=== PATIENT | female | born 1990 | race Asian ===

== ENCOUNTER 2017-06-15 18:25 | Inpatient (IN) | payer OTHER ==
[~2017-06-15] VITALS: Ht 162.6 cm; Wt 66.3 kg
[2017-06-15 19:56] LABS: CALCIUM 8.7 mg/dL (8.5-10.1); CARBON DIOXIDE 25.1 mmol/L (21-32); CHLORIDE SERUM 105 mmol/L (98-107); CREATININE SERUM 0.8 mg/dL (0.6-1.0); GFR1 > 60 mL/min; GLUCOSE SERUM 95 mg/dL (74-106); POTASSIUM SERUM 3.9 mmol/L (3.5-5.1); SODIUM SERUM 139 mmol/L (136-145)
[2017-06-15 19:59] LABS: ALBUMIN 3.7 g/dL (3.4-5.0); ALKALINE PHOSPHATASE 47 U/L (46-116); ALT/SGPT 6 U/L (14-59); AST/SGOT 24 U/L (15-37); BILIRUBIN TOTAL 0.29 mg/dL (0.20-1.00); TOTAL PROTEIN, SERUM 7.5 g/dL (6.4-8.2)
[2017-06-15 20:10] LABS: PLATELET COUNT 294 x10^3mcL (130-400)
[2017-06-15 20:11] LABS: RED CELL DISTRIBUTION WIDTH 16.1 % (11.5-14.5)
[2017-06-15 21:17] LABS: BAND NEUTROPHIL 0 % (0-10); BASOPHIL 0 % (0-2); MONOCYTE 3 % (0-7); SEGMENTED NEUTROPHILS 63 % (37-75)
[2017-06-15 21:18] LABS: rbc morphology (normal/abnorm) ABNORMAL (NORMAL)
[2017-06-15 21:19] LABS: ovalocyte/elliptocyte 1+; tear drop cell (dacryocyte) 1+
[2017-06-15 21:20] LABS: PLATELET MORPHOLOGY PLATELETS NORMAL
[2017-06-15 23:54] LABS: CHOLESTEROL/HDL RATIO 3.4; MAGNESIUM 2.2 mg/dL (1.8-2.4); PHOSPHOROUS 2.9 mg/dL (2.5-4.9)
[2017-06-15 23:55] LABS: FREE T4 0.98 ng/dL (0.76-1.46); FREE THYROXINE INDEX 2.7 ug/dL (1.4-4.5); T4(THYROXINE) 8.7 ug/dL (4.7-13.3)
[2017-06-15 23:57] VITALS: BP 116/80
[2017-06-16 00:16] LABS: T3 TOTAL 1.13 ng/mL
[2017-06-16 05:32] VITALS: BP 118/80
[2017-06-16 06:27] LABS: BASOPHIL % 0.4 % (0-2); PLATELET COUNT 274 x10^3mcL (130-400)
[2017-06-16 06:28] LABS: CALCIUM 8.2 mg/dL (8.5-10.1); CARBON DIOXIDE 24.1 mmol/L (21-32); CHLORIDE SERUM 106 mmol/L (98-107); CREATININE SERUM 0.8 mg/dL (0.6-1.0); GFR1 > 60 mL/min; GLUCOSE SERUM 100 mg/dL (74-106); PHOSPHOROUS 3.2 mg/dL (2.5-4.9); RED CELL DISTRIBUTION WIDTH 16.6 % (11.5-14.5); SODIUM SERUM 140 mmol/L (136-145)
[2017-06-16 06:41] LABS: POTASSIUM SERUM 2.9 mmol/L (3.5-5.1)
[2017-06-16 10:23] LABS: microscopic required? YES; urine erythrocyte 3+ (NEGATIVE)
[2017-06-16 10:37] LABS: AMPHETAMINE QUAL UR NONE DETECTED (NEG <=1000)
[2017-06-16 11:21] VITALS: BP 110/73
[2017-06-16 15:02] VITALS: BP 105/65
[2017-06-16 18:11] VITALS: BP 110/73
[2017-06-16 21:32] VITALS: BP 113/75
[2017-06-17 05:18] VITALS: BP 105/68
[2017-06-17 06:28] LABS: CALCIUM 8.6 mg/dL (8.5-10.1); CARBON DIOXIDE 26.2 mmol/L (21-32); CHLORIDE SERUM 107 mmol/L (98-107); CREATININE SERUM 0.6 mg/dL (0.6-1.0); GFR1 > 60 mL/min; GLUCOSE SERUM 95 mg/dL (74-106); POTASSIUM SERUM 3.8 mmol/L (3.5-5.1); SODIUM SERUM 140 mmol/L (136-145)
[2017-06-17 06:48] LABS: BASOPHIL % 0.3 % (0-2); PLATELET COUNT 285 x10^3mcL (130-400)
[2017-06-17 07:10] LABS: RED CELL DISTRIBUTION WIDTH 17.1 % (11.5-14.5)
[2017-06-17 09:06] VITALS: BP 107/54
[2017-06-17 09:27] VITALS: BP 110/69
[2017-06-17 12:16] VITALS: BP 104/56
[2017-06-17] MEDS ORDERED: FER300 PO (12:47)
[2017-06-17] MEDS ORDERED: COL100 PO (12:48)
[2017-06-17] MEDS ORDERED: VITC PO (13:06)
[2017-06-17] MEDS ORDERED: PROV5 PO (13:06)
[2017-06-17 13:44] VITALS: BP 104/56
== END 2017-06-17 15:20 | disposition home or self-care (01) | DRG 760 ==
LOC: ED 18:25 → DU 21:37 → MU 06-16 15:44
PROVIDERS: Emergency Medicine; ADMIT Family Medicine Sports Medicine
PROC: 30233N1 Transfusion of Nonautologous Red Blood Cells into Peripheral Vein, Percutaneous Approach (ICD-10-PCS; principal; 2017-06-16)
DX: N93.8 Other specified abnormal uterine and vaginal bleeding (principal); D62 Acute posthemorrhagic anemia; E87.6 Hypokalemia; Z68.25 Body mass index [BMI] 25.0-25.9, adult; E02 Subclinical iodine-deficiency hypothyroidism; E83.51 Hypocalcemia; R31.9 Hematuria, unspecified
CPT/HCPCS: 83880; 84439; J1410; J2916; J3480; J7030; J7040; P9016; Q0092; Q0163